=== PATIENT | male | born 1980 ===

== ENCOUNTER 2022-08-23 08:23 | Day surgery (SDC) | payer OTHER ==
[~2022-08-23] VITALS: Ht 180.3 cm; Wt 60.8 kg
[~2022-08-23 08:23] MED LIST: ATIVAN0.5 M1 PO; ZESTORETIC 10-1 EACH PO
[2022-08-23] MEDS ORDERED: NEURONTIN300 MG PO (10:53)
[2022-08-23] MEDS ORDERED: COLACE100 MG PO (10:53)
[2022-08-23] MEDS ORDERED: PERCOCET 5-3251 EACH PO (10:53)
[2022-08-23] MEDS ORDERED: TRAM1TAB98 PO (13:49)
== END 2022-08-23 18:40 | disposition home or self-care (01) ==
LOC: CIR.AMB 08:23
PROVIDERS: ATTEND Surgery
DX: K61.0 Anal abscess (principal); K62.89 Other specified diseases of anus and rectum; Z88.6 Allergy status to analgesic agent; Z88.8 Allergy status to other drugs, medicaments and biological substances